=== PATIENT | female | born 1975 | race African-American/Black ===

== ENCOUNTER 2016-10-15 15:48 | Emergency (ER) | payer OTHER ==
--- NOTE | 2016-10-15 16:17 | ED Physician Chart ---
Chief Complaint/HPI - Patient Information Date Seen:: 10/15/16 Time Seen:: 15:50 Chief Complaint:: Urinary retention History of Present Illness:: Pt. had dx cervical CA. She had hyst September 29. Complication was a ruptured bladder. Catheter removed yesterday. Now, urinary retention with foul- smelling urine and urgency. CARIDAD Echols called surgeon, Dr. Rah Carolina. He asked for catheter to be replaced. Allergies:: Allergies Allergy/AdvReac Type Severity Reaction Status Date / Time No Known Allergies Allergy Verified 10/15/16 16:05 Vitals:: 98.2, 102, 134/98. Review of Systems - Review of Systems General/Constitutional: No fever Skin: No skin lesions Neck: No neck pain Cardio Vascular: No chest pain Pulmonary: No SOB, No cough GI: No vomiting, No diarrhea G/U: Dysuria, Frequency Psychiatric: No prior psych history Neurological: No syncope, No focal symptoms Past Medical History - Past Medical History Past Medical History: Other (cervical CA) Family History: None Social History: Non Smoker, No Alcohol Surgical History: Hysterectomy (hyst, with complication of ruptured bladder.) Medication: Reviewed (analgesics only.) Physical Exam - Physical Examination General/Constitutional: Awake, Well-developed, well-nourished, Alert, No distress, GCS 15, Non-toxic appearing, Ambulatory Head: Atraumatic Eyes: Lids, conjuctiva normal, PERRL Skin: No rash ENMT: External ears, nose nl Neck: Full ROM w/o pain Respiratory: Nl effort/Exclusion, Clear to Auscultation, No Wheeze/Rhonchi/Rales Cardio Vascular: RRR, No murmur, gallop, rubs GI: No tenderness/rebounding/guarding : No CVA tenderness Extremities: Full ROM Neuro/Psych: Alert/oriented, No focal deficits Labs/Radiology/EKG Results - Lab Results Results: UA shows RBC greater than 100 and WBC 50 - 100. Nitrate neg, and leuk estrase small. Discussed with Dr. Carolina, the surgeon, per phone. He thinks the pt. should see a urologist, probably at [facility].. He was told of WBC in urine. Pt. has Gamboa and leg bag, but there is some continued leaking of urine. Dr. Carolina thinks pt. 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 Dr. Carolina called back. He will see pt. at [facility], and he has contacted a urologist there. Pt. wants to see her surgeon and is happy to do this. She is accompanied by family member. ED Septic Shock - . 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 - Aftercare/Follow up Instructions Aftercare/Follow-Up Instructions:: Counseled pt & family regarding lab results/ diagnosis & need follow up Notes:: Per surgeon, Dr. Carolina, pt. may be discharged, and not formally transferred. Pt. condition is stable, and she is here with a friend who may take her to see Dr. Carolina and urologist at [facility]. Medication Prescribed:: Rx: Levaquin 500 mg. one po qday. Disp. #7. No refill. Cancel above. Spoke with Dr. Carolina. He wants to see pt. at [facility]. He will call to confirm. He does not think pt. has need for antibiotic script. He is aware she got a dose of Levaquin in ER. - Patient Disposition Discharge/Transfer:: Home Condition at Disposition:: Stable ED Discharge Plan - Patient Disposition Admit/Discharge/Transfer: PT DISCHARGED HOME Condition at Disposition: Stable
[2016-10-15 16:51] LABS: URINE BILIRUBIN NEGATIVE (NEGATIVE); URINE BLOOD MODERATE (NEGATIVE); URINE COLOR YELLOW; URINE GLUCOSE (UA) NEGATIVE (NEGATIVE); URINE KETONE NEGATIVE (NEGATIVE); URINE PROTEIN 100 mg/dL (NEGATIVE); URINE UROBILINOGEN 0.2 E.U./dL (0.2 - 1.0)
[2016-10-15 16:52] LABS: URINE AMORPHOUS SEDIMENT MODERATE URATES (NONE SEEN); URINE BACTERIA MODERATE /hpf (NONE SEEN); URINE EPITHELIAL CELLS MODERATE /lpf (FEW); URINE RBC >100 /hpf (0-5)
[2016-10-15 16:54] LABS: URINE WBC 50-100 /hpf (0-5)
[2016-10-15] MEDS ORDERED: Hydrocodone/APAP 5mg/325mg Tab PO ONE (17:59)
[2016-10-15] MEDS ORDERED: Hydrocodone/APAP 5mg/325mg Tab ONE (18:02)
== END 2016-10-15 18:27 | disposition home or self-care (01) ==
LOC: ER 15:48
DX: N39.0 Urinary tract infection, site not specified (principal); Z90.710 Acquired absence of both cervix and uterus
CPT/HCPCS: 81001-TC; 87086-90; Z7502; Z7610

== ENCOUNTER 2016-10-31 05:12 | Emergency (ER) | payer OTHER ==
--- NOTE | 2016-10-31 06:08 | ED Physician Chart ---
Chief Complaint/HPI - Patient Information Date Seen:: 10/31/16 Time Seen:: 05:15 Chief Complaint:: Gamboa catheter malfunction History of Present Illness:: 40-year-old female with history recent hysterectomy and now indwelling Gamboa catheter complains of acute, constant, moderate, Gamboa catheter malfunction since 1 AM this morning. Has associated decreased urine collected in the Gamboa catheter bag. Says the Gamboa cath has been leaking. Allergies:: Allergies Allergy/AdvReac Type Severity Reaction Status Date / Time No Known Allergies Allergy Verified 10/31/16 05:30 Vitals:: Vital Signs - 8 hr 10/31/16 05:15 Temp 98.2 F HR 90 RR 18 BP 117/74 O2 Sat % 98 Historian:: Patient Review:: Nurse's Note Reviewed Review of Systems - Review of Systems Other: Complete system review otherwise unremarkable except as noted in history of present illness. Past Medical History - Past Medical History Past Medical History: Other Family History: None Social History: Non Smoker, No Alcohol, No Drug Use, Other Surgical History: Hysterectomy Psychiatricy History: None Medication: None Family Medical History - Family Member Mother History Unknown: Yes Physical Exam - Physical Examination Other:: INITIAL VITAL SIGNS: Reviewed by me GENERAL: Alert and interactive. No acute distress HEAD: Head is normocephalic and atraumatic EYES: EOMI. PERRL. No scleral icterus. No conjunctival injection ENT: Moist mucous membranes. NECK: Supple. No masses. Full range of motion RESPIRATORY: No tachypnea. Clear breath sounds bilaterally. No wheezing, rales, or rhonchi CV: Regular rate and rhythm. No murmurs, rubs, or gallops ABDOMEN: Soft, non-distended, non-tender. No guarding. No rebound. No masses. EXTREMITIES: No deformity. No cyanosis. No edema. SKIN: Warm and dry. No obvious rashes. NEUROLOGIC: Alert and oriented. Face is symmetric. Speech is normal. Moves all extremities equally. Motor and sensory distally intact. ED Septic Shock - . Is Septic Shock (SBP<90, OR Lactate>4 mmol\L) present?: No - <6hrs of presentation: Vital Signs: Vital Signs - 8 hr 10/31/16 05:15 Temp 98.2 F HR 90 RR 18 BP 117/74 O2 Sat % 98 Reassessment (Disposition) - Reassessment Reassessment:: Patient has indwelling Gamboa after hysterectomy. There was leaking from the Gamboa catheter around the port site since about 1 AM this morning. The catheter changed here in the ER. Working well. Patient discharged. Follow up with SURVEY ENGINEER within 2-3 days. Return to ER precautions given. Patient understands and agrees with the plan. Reassessment Condition:: Improved - Diagnosis Diagnosis:: Acute Gamboa catheter malfunction - Aftercare/Follow up Instructions Aftercare/Follow-Up Instructions:: Counseled pt regarding lab results/diagnosis & need follow up, Refer to Discharge Instructions - Patient Disposition Discharge/Transfer:: Home Time:: 06:08 Condition at Disposition:: Improved ED Discharge Plan - Patient Disposition Admit/Discharge/Transfer: PT DISCHARGED HOME Condition at Disposition: Improved Instructions: Gamboa Catheter Care, Adult, [id number]
[2016-10-31 06:24] LABS: URINE BILIRUBIN NEGATIVE (NEGATIVE); URINE BLOOD LARGE (NEGATIVE); URINE COLOR YELLOW; URINE GLUCOSE (UA) NEGATIVE (NEGATIVE); URINE KETONE NEGATIVE (NEGATIVE); URINE PROTEIN 100 mg/dL (NEGATIVE); URINE UROBILINOGEN 0.2 E.U./dL (0.2 - 1.0)
[2016-10-31 06:25] LABS: URINE BACTERIA MODERATE /hpf (NONE SEEN); URINE EPITHELIAL CELLS FEW /lpf (FEW)
== END 2016-10-31 06:15 | disposition home or self-care (01) ==
LOC: ER 05:12
DX: Z46.6 Encounter for fitting and adjustment of urinary device (principal); Z90.710 Acquired absence of both cervix and uterus
CPT/HCPCS: 81001-TC; Z7502; Z7610